=== PATIENT | female | born 1990 | race Two or more races ===

== ENCOUNTER 2020-01-18 05:09 | Inpatient (IN) | payer OTHER ==
[~2020-01-18] VITALS: Ht 165.1 cm; Wt 90.7 kg
[~2020-01-18 05:09] MED LIST: DIPHENHIST25 MG PO; FLONASE16 GM NASAL; MUCINEX600 MG PO; PRENATAL CAPLE1 EAC1 PO; ZITHROMAX TRI-500 MG PO
== END 2020-01-20 10:54 | disposition home or self-care (01) | DRG 807 ==
LOC: OB/GYN 05:09 → LDR 05:09 → OB/GYN 13:10
PROVIDERS: ADMIT Obstetrics & Gynecology
PROC: 10E0XZZ Delivery of Products of Conception, External Approach (ICD-10-PCS; principal; 2020-01-18)
PROC: 0KQM0ZZ Repair Perineum Muscle, Open Approach (ICD-10-PCS; 2020-01-18)
PROC: 3E0P7VZ Introduction of Hormone into Female Reproductive, Via Natural or Artificial Opening (ICD-10-PCS; 2020-01-18)
PROC: 3E033VJ Introduction of Other Hormone into Peripheral Vein, Percutaneous Approach (ICD-10-PCS; 2020-01-18)
PROC: 10907ZC Drainage of Amniotic Fluid, Therapeutic from Products of Conception, Via Natural or Artificial Opening (ICD-10-PCS; 2020-01-18)
PROC: 4A1HXCZ Monitoring of Products of Conception, Cardiac Rate, External Approach (ICD-10-PCS; 2020-01-18)
DX: O70.1 Second degree perineal laceration during delivery (principal); Z37.0 Single live birth; Z3A.39 39 weeks gestation of pregnancy